=== PATIENT | male | born 1995 | race Caucasian/White ===

== ENCOUNTER 2018-12-04 00:05 | Emergency (ER) | payer OTHER, MEDICAID ==
[~2018-12-04] VITALS: Ht 185.4 cm; Wt 104.3 kg
[~2018-12-04 00:05] MED LIST: AMOXICILLIN875 MG PO; CARAFATE 1 GM TA1 G1 PO; IBUPROFEN 600600 M1 PO; NOHOMEMEDICATIONS; NORCO 5-325 TA1 EACH PO; PEPCID40 MG PO; PROAIR HFA8.5 GM IH
[2018-12-04] MEDS ORDERED: PREDNISONE50 MG PO (01:35)
[2018-12-04 01:58] VITALS: BP 115/51
== END 2018-12-04 01:58 | disposition home or self-care (01) ==
LOC: M.ERS 00:05
DX: T78.40XA Allergy, unspecified, initial encounter (principal); F17.210 Nicotine dependence, cigarettes, uncomplicated; X58.XXXA Exposure to other specified factors, initial encounter